=== PATIENT | female | born 1990 | race African-American/Black ===

== ENCOUNTER 2016-12-05 17:46 | Emergency (ER) | payer MEDICAID ==
[~2016-12-05] VITALS: Ht 165.1 cm; Wt 80.0 kg
[2016-12-05 17:53] VITALS: BP 177/95
== END 2016-12-05 18:33 | disposition left against medical advice (07) ==
LOC: ER 17:47
DX: H57.10 Ocular pain, unspecified eye (principal); Z53.21 Procedure and treatment not carried out due to patient leaving prior to being seen by health care provider